=== PATIENT | female | born 1980 | race American Indian/Alaskan Native ===

== ENCOUNTER 2016-09-01 23:11 | Emergency (ER) | payer MEDICAID ==
[2016-09-01 23:25] VITALS: TEMP 97.5
[2016-09-01] MEDS ORDERED: ONDANSETRON 4 MG/2 ML VIAL ONE (23:59)
[2016-09-02 00:07] LABS: % IMMATURE GRANULYOCYTES 0.2 % (0.0-1.1); ABSOLUTE IMMATURE GRANULOCYTES 0.02 10^3/uL (0.00-0.10); ADD DIFF? NO; ADD MORPH? NO; ADD SCAN? NO; ATYPICAL LYMPHOCYTE FLAG 0 (0-99); FRAGMENT RBC FLAG 0 (0-99); HEMATOCRIT 37.6 % (38.0-47.0); HEMOGLOBIN 12.8 g/dL (12.6-16.3); LEFT SHIFT FLG 0 (0-99); LIPEMIA HEMOLYSIS FLAG 90 (0-99); MEAN CELL VOLUME 85.1 fL (81.5-99.8); MEAN PLATELET VOLUME 10.4 fL (8.7-11.7); PLATELET CLUMPS FLAG 10 (0-99); PLATELET COUNT 286 10^3/uL (150-400); RED BLOOD CELL COUNT 4.42 10^6/uL (4.18-5.33); RED CELL DISTRIBUTION WIDTH 13.2 % (11.5-15.2)
[2016-09-02] MEDS ORDERED: NS 1,000 ML IV ONE (00:08)
--- NOTE | 2016-09-02 00:08 | CPEKG ---
Heart Rate: 69 RR Interval: 870 P-R Interval: 199 QRSD Interval: 80 QT Interval: 412 QTC Interval: 442 P Watts: -3 QRS Watts: 34 T Wave Watts: 10 EKG Severity - NORMAL ECG - EKG Impression: SINUS RHYTHM Electronically Signed By: Dalia Beckman 02-Sep-2016 06:18:31
[2016-09-02] MEDS ORDERED: ONDANSETRON 4 MG/2 ML VIAL IVP ONE (00:09)
[2016-09-02 00:24] LABS: ANION GAP 14 mEq/L (8-16); CALCIUM 9.1 mg/dL (8.5-10.4); CARBON DIOXIDE 17 mEq/l (22-31); CHLORIDE 107 mEq/L (97-110); CREATININE 0.9 mg/dL (0.6-1.0); GLOMERULAR FILTRATION RATE > 60; GLUCOSE 156 mg/dL (70-100); POTASSIUM 3.7 mEq/L (3.5-5.2); SODIUM 138 mEq/L (134-144)
--- NOTE | 2016-09-02 00:30 | EDPHY ---
H & P Stated Complaint: dizzy, nausea, abd pain Time Seen by Provider: 09/02/16 00:10 HPI/ROS: HPI The patient presents with an episode of presyncope, brought in by ambulance. Apparently, she was feeling slightly lightheaded today while she was outside in the heat. This past, she took her metformin and went to a fast food restaurant. She was feeling fine, then at approximately 10:00 p.m. she began to feel warm throughout her body, lightheaded, had pains throughout her chest and abdomen. She felt as if she was going to faint, though did not. She checked her blood sugar and it was 156. She called 911 and was brought in by ambulance. She did have a sweat lodge yesterday. REVIEW OF SYSTEMS Constitutional: No fever, no chills. Eyes: No discharge. ENT: No sore throat. Cardiovascular: No chest pain, no palpitations. Respiratory: No cough, no shortness of breath. Gastrointestinal: No abdominal pain, no vomiting. Genitourinary: No hematuria. Musculoskeletal: No back pain. Skin: No rashes. Neurological: No headache. 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 PHYSICAL General Appearance: Alert, no distress Eyes: Pupils equal and round no pallor or injection ENT, Mouth: Mucous membranes moist Respiratory: There are no retractions, lungs are clear to auscultation Cardiovascular: Regular rate and rhythm Gastrointestinal: Abdomen is soft and non-tender, no masses, bowel sounds normal Neurological: A&O, moves all extremities Skin: Warm and dry, no rashes Musculoskeletal: Neck is supple non tender Extremities: symmetrical, full range of motion Psychiatric: Patient is oriented X 3, there is no agitation Source: Patient Exam Limitations: No limitations - Personal History LMP (Females 10-55): 8-14 Days Ago Current Tetanus/Diphtheria Vaccine: Yes Current Tetanus Diphtheria and Acellular Pertussis (TDAP): Yes Tetanus Vaccine Date: 2014 - Medical/Surgical History Hx Asthma: No Hx Chronic Respiratory Disease: No Hx Diabetes: Yes Hx Cardiac Disease: No Hx Renal Disease: No Hx Cirrhosis: No Hx Alcoholism: No Hx HIV/AIDS: No Hx Splenectomy or Spleen Trauma: No Other PMH: NIDDM. surgery cholecystecomy, left ankle repair - Social History Smoking Status: Heavy smoker Constitutional: Initial Vital Signs Temperature (C) 36.4 C 09/01/16 23:19 Heart Rate 68 09/01/16 23:19 Respiratory Rate 18 09/01/16 23:19 Blood Pressure 115/70 09/01/16 23:19 O2 Sat (%) 98 09/01/16 23:19 O2 Delivery Mode Room Air Allergies/Adverse Reactions: No Known Allergies Allergy (Verified 08/29/15 02:53) Home Medications: Medication Instructions Recorded metFORMIN HCL [Glucophage 500 mg 500 mg PO BID 04/09/10 (*)] metFORMIN HCL [Metformin HCl] 500 mg PO BID #60 tablet 08/29/15 Medical Decision Making - Diagnostics EKG Interpretation: EKG: Complete interpretation has been separately recorded in the [facility] [facility] archive. Summary impression: Normal sinus rhythm Differential Diagnosis: This is a 36-year-old female with type 2 diabetes on metformin who presents brought in by ambulance for an episode of presyncope associated with lightheadedness, warmth sensation throughout her body and pain in her chest and abdomen. On exam, she has normal vital signs and is well-appearing. Differential diagnosis includes arrhythmia, hypovolemia, hypotension, hypoglycemia, anxiety attack. Patient is given IV fluids for presumed volume depletion. Labs were checked including troponin and all were unremarkable. Glucose was normal. Patient improved in the emergency room and had no symptoms at time of discharge. She was monitored on telemetry with no events. I feel she may have suffered from an anxiety attack. She will be discharged has follow-up tomorrow at [facility] are ready arranged. - Data Points Laboratory Results: Laboratory Results 09/01/16 23:58 09/01/16 23:58 09/01/16 09/01/16 09/01/16 23:58 23:58 23:58 WBC RBC Hgb Hct MCV MCH MCHC RDW Plt Count MPV Neut % (Auto) Lymph % (Auto) Nance % (Auto) Eos % (Auto) Baso % (Auto) Nucleat RBC Rel Count Absolute Neuts (auto) Absolute Lymphs (auto) Absolute Monos (auto) Absolute Eos (auto) Absolute Basos (auto) Absolute Nucleated RBC Immature Gran % Immature Gran # Sodium 138 mEq/L mEq/L (134-144) Potassium 3.7 mEq/L mEq/L (3.5-5.2) Chloride 107 mEq/L mEq/L (97-110) Carbon Dioxide 17 mEq/l L mEq/l (22-31) Anion Gap 14 mEq/L mEq/L (8-16) BUN 13 mg/dL mg/dL (7-23) Creatinine 0.9 mg/dL mg/dL (0.6-1.0) Estimated GFR > 60 Glucose 156 mg/dL H mg/dL (70-100) Calcium 9.1 mg/dL mg/dL (8.5-10.4) Troponin I Cancelled < 0.012 ng/mL ng/mL (0-0.034) Beta HCG, Qual NEGATIVE 09/01/16 23:58 WBC 10.16 10^3/uL H 10^3/uL (3.80-9.50) RBC 4.42 10^6/uL 10^6/uL (4.18-5.33) Hgb 12.8 g/dL g/dL (12.6-16.3) Hct 37.6 % L % (38.0-47.0) MCV 85.1 fL fL (81.5-99.8) MCH 29.0 pg pg (27.9-34.1) MCHC 34.0 g/dL g/dL (32.4-36.7) RDW 13.2 % % (11.5-15.2) Plt Count 286 10^3/uL 10^3/uL (150-400) MPV 10.4 fL fL (8.7-11.7) Neut % (Auto) 61.0 % % (39.3-74.2) Lymph % (Auto) 29.8 % % (15.0-45.0) Nance % (Auto) 6.2 % % (4.5-13.0) Eos % (Auto) 2.3 % % (0.6-7.6) Baso % (Auto) 0.5 % % (0.3-1.7) Nucleat RBC Rel Count 0.0 % % (0.0-0.2) Absolute Neuts (auto) 6.20 10^3/uL 10^3/uL (1.70-6.50) Absolute Lymphs (auto) 3.03 10^3/uL H 10^3/uL (1.00-3.00) Absolute Monos (auto) 0.63 10^3/uL 10^3/uL (0.30-0.80) Absolute Eos (auto) 0.23 10^3/uL 10^3/uL (0.03-0.40) Absolute Basos (auto) 0.05 10^3/uL 10^3/uL (0.02-0.10) Absolute Nucleated RBC 0.00 10^3/uL 10^3/uL (0-0.01) Immature Gran % 0.2 % % (0.0-1.1) Immature Gran # 0.02 10^3/uL 10^3/uL (0.00-0.10) Sodium Potassium Chloride Carbon Dioxide Anion Gap BUN Creatinine Estimated GFR Glucose Calcium Troponin I Beta HCG, Qual Medications Given: Discontinued Medications Sodium Chloride (Ns) 1,000 mls @ 0 mls/hr IV ONCE ONE; Wide Open PRN Reason: Protocol Stop: 09/02/16 00:09 Last Admin: 09/02/16 00:11 Dose: 1,000 mls Ondansetron HCl (Zofran) 4 mg IVP EDNOW ONE Stop: 09/02/16 00:10 Last Admin: 09/02/16 00:11 Dose: 4 mg Departure - Departure Disposition: Home, Routine, Self-Care Clinical Impression: Pre-syncope Condition: Good Instructions: Near Syncope (ED) Additional Instructions: Please return to the emergency room if your worse in any way. Otherwise, you can follow up with [facility] tomorrow. Referrals: Josie Hernandez PA [Primary Care Provider] - As per Instructions
[2016-09-02 00:53] LABS: TROPONIN I < 0.012 ng/mL (0-0.034)
[2016-09-02 01:58] VITALS: BP 98/56; PULSE 72; RESP 16; O2SAT 97
== END 2016-09-02 01:58 | disposition home or self-care (01) ==
LOC: EDUNIT#
DX: R55 Syncope and collapse (principal); F17.200 Nicotine dependence, unspecified, uncomplicated; E11.9 Type 2 diabetes mellitus without complications; E86.9 Volume depletion, unspecified; Z79.84 Long term (current) use of oral hypoglycemic drugs
CPT/HCPCS: 96374; J2405

== ENCOUNTER 2016-09-11 00:25 | Emergency (ER) | payer MEDICAID ==
[2016-09-11 00:39] VITALS: RESP 20
[2016-09-11] MEDS ORDERED: NS 1,000 ML IV ONE (00:54)
[2016-09-11 01:08] LABS: % IMMATURE GRANULYOCYTES 0.2 % (0.0-1.1); ABSOLUTE IMMATURE GRANULOCYTES 0.02 10^3/uL (0.00-0.10); ADD DIFF? NO; ADD MORPH? NO; ADD SCAN? NO; ATYPICAL LYMPHOCYTE FLAG 10 (0-99); FRAGMENT RBC FLAG 0 (0-99); HEMATOCRIT 42.9 % (38.0-47.0); HEMOGLOBIN 14.5 g/dL (12.6-16.3); LEFT SHIFT FLG 0 (0-99); LIPEMIA HEMOLYSIS FLAG 90 (0-99); MEAN CELL HEMOGLOBIN 28.8 pg (27.9-34.1); MEAN CELL HEMOGLOBIN CONCENTR. 33.8 g/dL (32.4-36.7); MEAN CELL VOLUME 85.1 fL (81.5-99.8); MEAN PLATELET VOLUME 10.4 fL (8.7-11.7); PLATELET CLUMPS FLAG 0 (0-99); PLATELET COUNT 322 10^3/uL (150-400); RED BLOOD CELL COUNT 5.04 10^6/uL (4.18-5.33); RED CELL DISTRIBUTION WIDTH 13.7 % (11.5-15.2)
[2016-09-11] MEDS ORDERED: FAMOTIDINE 20 MG/NACL 50 ML IV ONE (01:17)
[2016-09-11] MEDS ORDERED: MAG HYDROX/AL HYDROX/SIMETH 30 ML UDCUP PO ONE (01:17)
--- NOTE | 2016-09-11 01:19 | EDPHY ---
H & P Stated Complaint: Abdominal pain, nausea, anxiety Time Seen by Provider: 09/11/16 01:07 HPI/ROS: HPI The patient presents with abdominal pain which began about 1 hour prior to presentation. She had eaten pizza, fallen asleep on the couch and then awoke with this pain which she rates as severe, throughout her abdomen, aching in nature, improved when she rubs her abdomen. She has a history of similar pain, last several months ago. She has had 1 episode of vomiting. She has not had any diarrhea or constipation. She is brought in by paramedics, they said that she was very distraught upon arrival, screaming, seem to be very anxious so she was given Valium 2.5 mg IV and Zofran 4 mg IV with some improvement in her symptoms. She says she is feeling better, however is not completely improved.. REVIEW OF SYSTEMS Constitutional: No fever, no chills. Eyes: No discharge. ENT: No sore throat. Cardiovascular: No chest pain, no palpitations. Respiratory: No cough, no shortness of breath. Gastrointestinal: See HPI Genitourinary: No hematuria. Musculoskeletal: No back pain. Skin: No rashes. Neurological: No headache. PMHx: Diabetes on metformin Soc Hx: Housed, denies any alcohol use PHYSICAL General Appearance: Alert, crying and anxious Eyes: Pupils equal and round no pallor or injection ENT, Mouth: Mucous membranes moist Respiratory: There are no retractions, lungs are clear to auscultation Cardiovascular: Regular rate and rhythm Gastrointestinal: Abdomen is soft and non-tender, no masses, bowel sounds normal Neurological: A&O, moves all extremities Skin: Warm and dry, no rashes Musculoskeletal: Neck is supple non tender Extremities: symmetrical, full range of motion Psychiatric: Patient is oriented X 3, there is no agitation Source: Patient Exam Limitations: No limitations - Personal History Current Tetanus Diphtheria and Acellular Pertussis (TDAP): Yes Tetanus Vaccine Date: 2014 - Medical/Surgical History Hx Asthma: No Hx Chronic Respiratory Disease: No Hx Diabetes: Yes Hx Cardiac Disease: No Hx Renal Disease: No Hx Cirrhosis: No Hx Alcoholism: No Hx HIV/AIDS: No Hx Splenectomy or Spleen Trauma: No Other PMH: NIDDM, anxiety. surgery cholecystecomy, left ankle repair - Social History Smoking Status: Heavy smoker Constitutional: Initial Vital Signs Temperature (C) 36.6 C 09/11/16 00:35 Heart Rate 80 09/11/16 00:35 Respiratory Rate 20 09/11/16 00:35 Blood Pressure 100/73 09/11/16 00:35 O2 Sat (%) 96 09/11/16 00:35 O2 Delivery Mode Room Air Allergies/Adverse Reactions: No Known Allergies Allergy (Verified 08/29/15 02:53) Home Medications: Medication Instructions Recorded metFORMIN HCL [Glucophage 500 mg 500 mg PO BID 04/09/10 (*)] metFORMIN HCL [Metformin HCl] 500 mg PO BID #60 tablet 08/29/15 Medical Decision Making Differential Diagnosis: This is a 36-year-old female who is brought in by ambulance with diabetes type 2 who is complaining of abdominal pain and anxiety. Differential diagnosis includes gastritis, GERD, anxiety attack. In the ER, labs were checked, pt was given IVF for presumed hypovolemia. Pt felt better after receiving medications, inlcuding famotidine. Labs were unremarkable. She was able to tolerate po and was able to go home. She agrees there may be a component of anxiety to the way she is feeling. - Data Points Laboratory Results: Laboratory Results 09/11/16 00:30 09/11/16 00:30 Medications Given: Discontinued Medications Al Hydroxide/Mg Hydroxide (Maalox Susp) 30 ml PO EDNOW ONE Stop: 09/11/16 01:18 Last Admin: 09/11/16 01:24 Dose: 30 ml Sodium Chloride (Ns) 1,000 mls @ 0 mls/hr IV ONCE ONE PRN Reason: Wide Open Stop: 09/11/16 00:55 Last Admin: 09/11/16 00:55 Dose: 1,000 mls Famotidine/Sodium Chloride (Pepcid 20 Mg (Premix)) 50 mls @ 200 mls/hr IV EDNOW ONE Stop: 09/11/16 01:31 Last Admin: 09/11/16 01:24 Dose: 50 mls Departure - Departure Disposition: Home, Routine, Self-Care Clinical Impression: Gastritis Condition: Good Instructions: Gastritis (ED) Referrals: Josie Hernandez PA [Primary Care Provider] - As per Instructions
[2016-09-11 01:21] LABS: CALCIUM 9.8 mg/dL (8.5-10.4); CARBON DIOXIDE 22 mEq/l (22-31); CHLORIDE 108 mEq/L (97-110); CREATININE 0.9 mg/dL (0.6-1.0); GLOMERULAR FILTRATION RATE > 60; GLUCOSE 107 mg/dL (70-100); SODIUM 144 mEq/L (134-144)
[2016-09-11 01:27] LABS: ANION GAP 14 mEq/L (8-16); POTASSIUM 4.6 mEq/L (3.5-5.2)
[2016-09-11 02:03] VITALS: BP 103/63; PULSE 78; TEMP 98.1; O2SAT 95
== END 2016-09-11 02:04 | disposition home or self-care (01) ==
LOC: EDUNIT#
DX: K29.70 Gastritis, unspecified, without bleeding (principal); E11.9 Type 2 diabetes mellitus without complications; F17.200 Nicotine dependence, unspecified, uncomplicated; Z79.84 Long term (current) use of oral hypoglycemic drugs; Z90.49 Acquired absence of other specified parts of digestive tract
CPT/HCPCS: 96365

== ENCOUNTER 2017-01-22 11:59 | Emergency (ER) | payer MEDICAID ==
[2017-01-22 12:08] VITALS: RESP 18
--- NOTE | 2017-01-22 12:55 | EDPHY ---
H & P Stated Complaint: Abd "bloating"; PCP told her she is not Time Seen by Provider: 01/22/17 12:40 HPI/ROS: CHIEF COMPLAINT: Lower abdominal pain and bloating HISTORY OF PRESENT ILLNESS: This is a 36-year-old female with a history of diabetes for which she takes metformin who presents with 2 weeks of lower abdominal pain and bloating. 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 Her last menses was around January 12, lasted 7 days, and included some blood clots. She has had a negative test performed by her primary care provider. She has been using ibuprofen for the lower abdominal cramping successfully until today when the pain persisted. She denies fever, nausea vomiting, diarrhea, constipation, blood in her stools, or dysuria. She was treated for urinary tract infection with 7 day course of antibiotics about 2 weeks ago. She reports urinary frequency but no other urinary symptoms at this time. REVIEW OF SYSTEMS: A ten point review of systems was performed and is negative with the exception of the items mentioned in the HPI. 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 She smokes 1/3 pack of cigarettes daily. She does not use alcohol or illicit drugs. General Appearance: Alert. Vital signs reviewed. Eyes: Pupils equal and round, no conjunctival injection, no discharge. Anicteric. ENT, Mouth: Mucous membranes are moist, no oropharyngeal erythema or edema. Neck: No lymphadenopathy, supple. Respiratory: Lungs are clear to auscultation; no wheezes, rales, or rhonchi. Cardiovascular: Regular rate and rhythm; no murmur, rub, or gallop. Gastrointestinal: Abdomen is soft and mildly tender in both lower quadrants without guarding, no masses or organomegaly, bowel sounds normal. Skin: Warm and dry, no rashes on exposed skin, normal color. Back: Nontender to palpation over the thoracolumbar spine. No CVAT. Extremities: No lower extremity edema, no calf tenderness or swelling. Neurological: Alert and oriented. Moving all four extremities easily and equally. Psychiatric: Normal affect. - Personal History LMP (Females 10-55): Unknown Current Tetanus Diphtheria and Acellular Pertussis (TDAP): Yes Tetanus Vaccine Date: 2014 - Medical/Surgical History Hx Asthma: No Hx Chronic Respiratory Disease: No Hx Diabetes: Yes Hx Cardiac Disease: No Hx Renal Disease: No Hx Cirrhosis: No Hx Alcoholism: No Hx HIV/AIDS: No Hx Splenectomy or Spleen Trauma: No Other PMH: NIDDM, anxiety. surgery cholecystecomy, left ankle repair - Social History Smoking Status: Heavy smoker Constitutional: Initial Vital Signs Temperature (C) 36.8 C 01/22/17 12:05 Heart Rate 88 01/22/17 12:05 Respiratory Rate 18 01/22/17 12:05 Blood Pressure 134/79 H 01/22/17 12:05 O2 Sat (%) 99 01/22/17 12:05 O2 Delivery Mode Room Air Allergies/Adverse Reactions: No Known Allergies Allergy (Verified 01/22/17 12:04) Home Medications: Medication Instructions Recorded metFORMIN HCL [Metformin HCl] 500 mg PO BID #60 tablet 08/29/15 Medical Decision Making ED Course/Re-evaluation: CBC, chemistries, in beta HCG performed. The only abnormality is a blood sugar of 165. She was examined twice. Her abdomen remains soft with some very mild lower abdominal tenderness, no peritoneal signs. She thinks that she might have gas but she denies flatulence or belching. She feels bloated. She did have a normal bowel movement this morning and does not think that she has been constipated. I do not suspect bowel obstruction. I am not concerned about the possibility of appendicitis given her history and physical examination. I do not think that she has an ovarian cyst rupture. Nor do I think that this is ovarian torsion. Her main concern was that she might be and she is relieved to learned that this is not the case. She is comfortable returning home. She will follow up with her OBGYN if her menstrual cycle remains abnormal. We reviewed the danger signs that should prompt her to return with these including fever, vomiting, severe abdominal pain. Differential Diagnosis: Abdominal pain including but not limited to appendicitis, ectopic her intrauterine , ovarian cyst, ovarian torsion, gastritis, pyelonephritis and urinary tract infection. - Data Points Laboratory Results: Laboratory Results 01/22/17 12:45 01/22/17 12:45 Departure - Departure Disposition: Home, Routine, Self-Care Clinical Impression: Abdominal pain Qualifiers: Abdominal location: lower abdomen, unspecified Qualified Code(s): R10.30 - Lower abdominal pain, unspecified Condition: Good Instructions: Gas and Bloating (ED), Abdominal Pain (ED) Additional Instructions: Follow-up with your OBGYN if you continue with abnormal menstrual periods. Return for re-evaluation if you develop fever, vomiting, severe persistent abdominal pain, any new or concerning symptoms. Referrals: Josie Hernandez PA [Primary Care Provider] - As per Instructions
[2017-01-22 13:05] LABS: % IMMATURE GRANULYOCYTES 0.2 % (0.0-1.1); ABSOLUTE IMMATURE GRANULOCYTES 0.02 10^3/uL (0.00-0.10); ADD DIFF? NO; ADD MORPH? NO; ADD SCAN? NO; ATYPICAL LYMPHOCYTE FLAG 0 (0-99); FRAGMENT RBC FLAG 0 (0-99); HEMATOCRIT 41.1 % (38.0-47.0); HEMOGLOBIN 14.5 g/dL (12.6-16.3); LEFT SHIFT FLG 0 (0-99); LIPEMIA HEMOLYSIS FLAG 90 (0-99); MEAN CELL HEMOGLOBIN 29.4 pg (27.9-34.1); MEAN CELL HEMOGLOBIN CONCENTR. 35.3 g/dL (32.4-36.7); MEAN CELL VOLUME 83.2 fL (81.5-99.8); PLATELET CLUMPS FLAG 20 (0-99); PLATELET COUNT 246 10^3/uL (150-400); RED BLOOD CELL COUNT 4.94 10^6/uL (4.18-5.33)
[2017-01-22 13:27] LABS: ANION GAP 10 mEq/L (8-16); CALCIUM 9.2 mg/dL (8.5-10.4); CARBON DIOXIDE 22 mEq/l (22-31); CHLORIDE 105 mEq/L (97-110); CREATININE 0.7 mg/dL (0.6-1.0); GLOMERULAR FILTRATION RATE > 60; GLUCOSE 165 mg/dL (70-100); POTASSIUM 4.1 mEq/L (3.5-5.2); SODIUM 137 mEq/L (134-144)
[2017-01-22 14:22] VITALS: BP 100/63; PULSE 81; TEMP 98.1; O2SAT 97
== END 2017-01-22 14:22 | disposition home or self-care (01) ==
DX: R10.30 Lower abdominal pain, unspecified (principal); E11.9 Type 2 diabetes mellitus without complications; F17.200 Nicotine dependence, unspecified, uncomplicated; Z79.84 Long term (current) use of oral hypoglycemic drugs; Z90.710 Acquired absence of both cervix and uterus

== ENCOUNTER 2017-05-21 14:13 | Emergency (ER) | payer MEDICAID ==
--- NOTE | 2017-05-21 15:17 | EDPHY ---
H & P Time Seen by Provider: 05/21/17 15:02 HPI/ROS: CHIEF COMPLAINT: Throat tightness, palpitations HISTORY OF PRESENT ILLNESS: The patient is a 36 y/o female complaining of a tightness in the throat, onset three days ago. Thursday, she developed sinus cold symptoms including sinus congestion and post nasal drip. Thursday, she noted an intermittent tightness extending from her ears bilaterally to the front of her throat, from her chin to her chest. The tightness would last a few moments before passing. Today, while leaving the grocery store, she felt the same pain but this pain did not dissipate. She reports the pain feels like a stabbing pain and is worst in between the clavicles. Looking up and coughing aggravate pain symptoms. At that same time, she developed anxiety and a 'flutter' in her chest, making her feel hot and dizzy. She has associated feeling of being unable to take a full breath and a cough. She took Advil sinus and cold at 10: 00 AM, this morning. She denies sore throat, or any other associated symptoms. She is attempting to quit smoking currently. REVIEW OF SYSTEMS: A 10 point review of systems was performed and is negative with the exception of the elements mentioned in the history of present illness. Past Medical/Surgical History: 1. Diabetes 2. Hypercholesterolemia 3. Anxiety Social History: Daughter at bedside, lives in [place], smoker Smoking Status: Heavy smoker Physical Exam: General Appearance: Alert, pleasant Eyes: Pupils equal and round, no conjunctival pallor or injection ENT, Mouth: Mucous membranes moist Neck: Normal inspection, slight tenderness over the insertion of the SCM. Thyroid is nontender and not enlarged. No cervical adenopathy. Respiratory: Lungs are clear to auscultation Cardiovascular: Regular rate and rhythm Gastrointestinal: Abdomen is soft and non-tender Neurological: A&O, nonfocal exam Skin: Warm and dry, no rash Extremities: Normal inspection Psychiatric: Anxious Constitutional: Initial Vital Signs Temperature (C) 36.9 C 05/21/17 14:16 Heart Rate 101 H 05/21/17 14:16 Respiratory Rate 16 05/21/17 14:16 Blood Pressure 131/94 H 05/21/17 14:16 O2 Sat (%) 97 05/21/17 14:16 O2 Delivery Mode Room Air Allergies/Adverse Reactions: No Known Allergies Allergy (Verified 01/22/17 12:04) Home Medications: Medication Instructions Recorded metFORMIN HCL [Metformin HCl] 500 mg PO BID #60 tablet 08/29/15 Medical Decision Making ED Course/Re-evaluation: The patient presents with episodic neck tightness and cold symptoms. The tightness worsened to a sharp pain this afternoon and was accompanied by an episode of fluttering in her chest, prompting her visit. On exam, the patient has no thyroid tenderness or enlargement, or cervical lymphadenopathy. Plan for soft tissue neck X-ray. 3:45 PM- soft tissue neck X-ray independently reviewed by me is normal. I reassessed the patient and informed her of the results of her workup. c/w musculoskeletal etiology. I feel she is safe to return home with ibuprofen for symptom management. The patient agrees to this course of action. Follow up instructions and return precautions given. Differential Diagnosis: Includes does not limited to acute thyroiditis, epiglottitis, tracheitis, pneumonia Departure - Departure Disposition: Home, Routine, Self-Care Clinical Impression: Neck pain URI (upper respiratory infection) Qualifiers: URI type: unspecified viral URI Qualified Code(s): J06.9 - Acute upper respiratory infection, unspecified Condition: Good Instructions: Upper Respiratory Infection (ED), Neck Pain (ED) Additional Instructions: 1. Take 600 mg of ibuprofen every 8 hours with food as needed for pain for 2 to 3 days. 2. Follow up with your primary care provider for lack of improvement in symptoms in 2 to 3 days. 3. Return to the emergency department for any difficulty breathing or other worsening of condition. Referrals: Josie Hernandez PA [Primary Care Provider] - As per Instructions Report Scribed for: Elsa Morris Report Scribed by: Sherrill Benitez Date of Report: 05/21/17 Time of Report: 15:20 Physician Review and Approval Statement: 05/21/17 15:20 Portions of this note were transcribed by a medical officer. I personally performed a history, physical exam, medical decision making, and confirmed accuracy of information the transcribed note.
[2017-05-21 15:59] VITALS: BP 127/73; PULSE 89; RESP 18; TEMP 98.8; O2SAT 92
== END 2017-05-21 15:55 | disposition home or self-care (01) ==
DX: M54.2 Cervicalgia (principal); J06.9 Acute upper respiratory infection, unspecified; E11.9 Type 2 diabetes mellitus without complications; F17.200 Nicotine dependence, unspecified, uncomplicated; Z79.84 Long term (current) use of oral hypoglycemic drugs

== ENCOUNTER 2018-06-16 08:33 | Emergency (ER) | payer MEDICAID ==
[2018-06-16] MEDS ORDERED: IBUPROFEN 600 MG TAB PO ONE (08:44)
--- NOTE | 2018-06-16 09:33 | EDPHY ---
General Time Seen by Provider: 06/16/18 09:02 Narrative: CLINICAL IMPRESSION: Acute, paravertebral and sacroiliac right-sided back pain and pelvic pain ASSESSMENT/PLAN: 37-year-old female presents to the emergency department 1 day after reportedly falling backwards down 12 concrete steps injuring her back and buttocks. She did not hit her head or have loss of consciousness. She is not finding pain control with ibuprofen. She has no obvious contusion, swelling or abrasion to the back. No flank pain. No gait intolerance, saddle anesthesia, bowel or bladder incontinence, urinary retention, lower extremity paresthesias. Nonfocal neurological exam. X-rays of the lumbar spine and pelvis show no evidence of acute fracture, subluxation, retropulsion or compression deformity. Patient drove herself to the emergency department. She was given ibuprofen and a Lidoderm patch here, pain medication prescribed, PCP follow-up recommended , low threshold for return to ED sooner for worsening symptoms as outlined and discharge. DIFFERENTIAL DX: Differential includes but not limited to acute fracture, strain/sprain, joint dislocation, soft tissue contusion ED COURSE: Seen and assessed by myself. Plan for x-rays. Patient ambulatory without assistance. 10:20 a.m.: Preliminary review of x-rays by myself shows no obvious lumbar spine fracture, compression deformity, subluxation, retropulsion. Pelvic x- rays also without obvious fracture. Final radiology read pending. CHIEF COMPLAINT: Low back pain HPI: 37-year-old female presents to the emergency department after she reportedly fell down approximately 20 concrete steps yesterday. Patient was walking up the steps, behind her daughter, both of whom were caring groceries, her daughter slipped, she pushed the daughter up and subsequently fell backwards sliding down 12 steps. She did not hit her head. She was able to stand up and get back into the house. She took migraine medication and for ibuprofen which helped a mild headache but did not help the back. She is ambulatory but with pain. She reports no bowel or bladder incontinence, urinary retention, groin anesthesia. She had intermittent paresthesias down the right leg last night but that has resolved. She reports pain on the bottom of her buttocks. No open wounds or obvious bruising. She does not take regular chronic pain medications and no prior back injury or surgery. 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 Neurological: No sensory loss or weakness. PHYSICAL EXAM: General Appearance: Alert, oriented, appropriate for age, cooperative, appears uncomfortable, sitting Macedonian style leaning forward in the bed, able to get herself up straight her legs and ambulate slowly but without assistance, well hydrated, non-toxic appearing, VSS, no hypoxia. Neurological: Alert and oriented x 3, normal sensation and strength of extremities patellar DTRs 2+ bilaterally. Intact sensation to bilateral lower legs. Negative straight leg raise test. Skin: Warm, dry, no rashes, no nodules on palpation. No contusion or abrasion to lower back or coccyx region Musculoskeletal: Reproducible pain to midline lumbar spine extending into coccyx and sacrum as well as radiating to the SI joint and ischium on the right. Patient reports intact saddle sensation. Rectal exam not performed. MEDICAL DECISION MAKING: Patient was seen independently. Secondary supervising physician at time of evaluation was Dr. Vora. Diagnosis: Acute paravertebral low back pain, pelvic pain . New, requires workup Summary: See assessment and plan for summary of ED visit Independent visualization of images, tracing, or specimens yes. Patient Progress: Stable for discharge. - Diagnostics Imaging Results: Imaging Impressions Lumbar Spine X-Ray 06/16/18 09:31 Impression: Negative. No compression fracture. Pelvis X-Ray 06/16/18 09:31 Impression: Negative. No acute fracture. - History Smoking Status: Heavy smoker - Objective Vital Signs: Initial Vital Signs Temperature (C) 36.8 C 06/16/18 08:37 Heart Rate 94 06/16/18 08:37 Blood Pressure 128/87 H 06/16/18 08:37 O2 Sat (%) 98 06/16/18 08:37 O2 Delivery Mode Room Air Allergies/Adverse Reactions: No Known Allergies Allergy (Verified 06/16/18 08:36) Home Medications: Medication Instructions Recorded metFORMIN HCL [Metformin HCl] 500 mg PO BID #60 tablet 08/29/15 Cyclobenzaprine [Flexeril] 10 mg PO TID #15 tab 06/16/18 oxyCODONE/APAP 5/325 [Percocet 1 - 2 tab PO Q4-6PRN PRN #10 tab 06/16/18 5/325] Medications Given: Discontinued Medications Ibuprofen (Motrin) 600 mg PO EDNOW ONE Stop: 06/16/18 08:45 Last Admin: 06/16/18 09:04 Dose: 600 mg Miscellaneous Medication (Icy Hot Lidocaine/Menthol 4%/1% Patch) 1 patch TD EDNOW ONE Stop: 06/16/18 10:41 Last Admin: 06/16/18 10:52 Dose: 1 patch Departure - Departure Disposition: Home, Routine, Self-Care Clinical Impression: Lumbar back pain Condition: Good Instructions: Acute Low Back Pain (ED) Additional Instructions: DISCHARGE INSTRUCTIONS FROM YOUR DOCTOR Thank you for visiting our emergency department today. You were treated by a physician content assistant today and your case was reviewed with our ED Attending physician. Please keep in mind that discharge from the emergency department does not mean that there is nothing wrong - it simply means that we have not identified an emergency condition that requires further evaluation or treatment in the hospital. You should always plan to follow up with primary care for re- evaluation of your condition in the next 2-3 days. If you have been referred to a specialist, please call as soon as possible (today or tomorrow) to schedule your follow up appointment at the appropriate time. X-RAYS OF THE LUMBAR SPINE AND PELVIS SHOW NO EVIDENCE OF ACUTE FRACTURE. YOU LIKELY HAVE A MUSCULOSKELETAL INJURY. A LIDODERM PATCH WAS APPLIED IN THE EMERGENCY DEPARTMENT. THESE CAN BE PURCHASED AT THE [facility]OCERY [facility]ORE. PLEASE LEAVE A PATCH ON FOR 12 HR, REMOVE FOR FULL 12 HR BEFORE APPLYING A NEW PATCH. CONTINUE USE TYLENOL OR IBUPROFEN DURING THE DAY. PRESCRIPTION FOR PAIN MEDICATION AND MUSCLE RELAXERS WERE GIVEN. DO NOT DRIVE OR DRINK ALCOHOL WHILE TAKING NARCOTIC PAIN MEDICATION. PLEASE BE AWARE, NARCOTICS CAN CAUSE CONSTIPATION, LETHARGY, AND INCREASE YOUR RISK OF FALLING. DO NOT TAKE TYLENOL AT THE SAME TIME VICODIN OR PERCOCET. FOLLOW UP WITH A PRIMARY CARE DOCTOR IN 1-2 DAYS. RETURN TO THE EMERGENCY DEPARTMENT IMMEDIATELY FOR INCREASED OR SEVERE PAIN, BLOOD IN HER URINE, INABILITY TO WALK, NUMBNESS TO THE GROIN OR LEGS, BOWEL OR BLADDER INCONTINENCE, URINARY RETENTION, HIGH FEVERS, OR ANY OTHER CONCERN. People present with illnesses and injuries in different ways, and it is always possible that we have missed something. You may always return for re-evaluation if symptoms worsen or if they are not improving or if you develop new/different symptoms. Again, thank you for choosing our emergency department. We hope that you feel better. Referrals: Josie Hernandez PA [Primary Care Provider] - 1-2 days without fail Prescriptions: Cyclobenzaprine [Flexeril] 10 mg PO TID #15 tab oxyCODONE/APAP 5/325 [Percocet 5/325] 1 - 2 tab PO Q4-6PRN PRN #10 tab PRN Reason: Pain, Breakthrough
[2018-06-16 10:25] VITALS: BP 98/78
[2018-06-16] MEDS ORDERED: LIDOCAINE 4%/MENTHOL 1% PATCH TD ONE (10:40)
[2018-06-16] MEDS ORDERED: PATCH REMOVAL 1 EA PATCH TD SCH (21:00)
== END 2018-06-16 11:00 | disposition home or self-care (01) ==
DX: M54.5 Low back pain (principal); F17.200 Nicotine dependence, unspecified, uncomplicated